=== PATIENT | male | born 1995 | race Caucasian/White ===

== ENCOUNTER 2017-05-26 16:39 | Emergency (ER) | payer BC ==
[~2017-05-26] VITALS: Ht 167.6 cm; Wt 78.0 kg
[2017-05-26 16:42] VITALS: Ht 167.6 cm; Wt 78.0 kg
[2017-05-26] MEDS ORDERED: DICY10CA60 PO (17:42)
[2017-05-26] MEDS ORDERED: ONDA4TAB14 PO (17:42)
--- NOTE | 2017-05-26 17:47 | ERD ---
ER Documentation Chief Complaint Date/Time DATE: 05/26/17 TIME: 17:45 Chief Complaint pt bib family with c/o abd pain and vomiting starting today HPI This is a 21-year-old male with no past medical history who presents with abdominal cramping and vomiting today. He states several hours prior to arrival he noted mild left-sided abdominal cramping that was 3 out of 10 with associated 2 episodes of nonbloody nonbilious emesis. Symptoms are improving currently. No diarrhea. He denies any fevers or chills, no recent sick contacts travel or antibiotics. He denies abdominal surgical history, no scrotal pain or testicular pain. ROS All systems reviewed and are negative except as per history of present illness. Medications Home Meds Active Scripts Dicyclomine Hcl* (Bentyl*) 10 Mg Capsule, 10 MG PO QID Y for abdominal cramping , #20 CAP Prov:GAIL KELLER MD 05/26/17 Ondansetron (Ondansetron Odt) 4 Mg Tab.rapdis, 4 MG PO Q6H Y for NAUSEA AND/OR VOMITING, #30 TAB Prov:GAIL KELLER MD 05/26/17 Allergies Allergies: Coded Allergies: No Known Allergy (Unverified , 05/26/17) FmHx Family History: No diabetes Physical Exam Vitals Vital Signs Date Time Temp Pulse Resp B/P Pulse Ox O2 Delivery O2 Flow Rate FiO2 05/26/17 16:42 98.9 72 16 129/66 99 Physical Exam General: Well developed, well nourished, no acute distress Head: Normocephalic, atraumatic. Eyes: Pupils equally reactive, EOM intact ENT: Moist mucous membranes Neck: Supple, no lymphadenopathy Respiratory: Lungs clear bilaterally, no distress Cardiovascular: RRR, no murmurs, rubs, or gallops Abdominal: Soft, non-tender, non-distended, no peritoneal signs, Negative Robertson sign, no tenderness to McBurney's point, no inguinal hernia : Deferred MSK: No edema, no unilateral swelling, 5/5 strength Neurologic: Alert and oriented, moving all extremities, normal speech, no focal weakness, no cerebellar signs Skin: No rash Psych: Normal mood Procedures/MDM The patient presents with abdominal pain and vomiting. His abdominal pain and vomiting is most consistent with likely viral process. On clinical exam he has a benign abdominal examination without signs or symptoms concerning for acute intra-abdominal process. No evidence of acute testicular process. The patient has normal vital signs without fever. Again, this is most likely viral process. At this time I do not feel the patient would benefit from laboratory testing or diagnostic imaging. The patient is well hydrated. I discussed oral hydration and return precautions including migratory pain to the right lower quadrant or fevers or chills. The patient verbalizes understanding. He is otherwise extremely well-appearing in the emergency department. We discussed follow up with the patient's primary care doctor within 24 to 48 hours as needed. We also discussed return to the emergency room for worsening symptoms or worsening condition. Outpatient referral: None required Discharge Medications: Leonor Blount Diagnosis: Primary Impression: Nausea and vomiting Vomiting type: unspecified Vomiting Intractability: non-intractable Qualified Code: R11.2 - Non-intractable vomiting with nausea, unspecified vomiting type Additional Impression: Abdominal pain Abdominal location: generalized Qualified Code: R10.84 - Generalized abdominal pain Condition: Stable Patient Instructions: Abdominal Pain, Nausea and Vomiting-Adult Referrals: [facility] YOU HAVE RECEIVED A MEDICAL SCREENING EXAM AND THE RESULTS INDICATE THAT YOU DO NOT HAVE A CONDITION THAT REQUIRES URGENT TREATMENT IN THE EMERGENCY DEPARTMENT. FURTHER EVALUATION AND TREATMENT OF YOUR CONDITION CAN WAIT UNTIL YOU ARE SEEN IN YOUR DOCTORS OFFICE WITHIN THE NEXT 1-2 DAYS. IT IS YOUR RESPONSIBILITY TO MAKE AN APPOINTMENT FOR FOLOW-UP CARE. IF YOU HAVE A PRIMARY DOCTOR --you should call your primary doctor and schedule an appointment IF YOU DO NOT HAVE A PRIMARY DOCTOR YOU CAN CALL OUR PHYSICIAN REFERRAL HOTLINE AT IF YOU CAN NOT AFFORD TO SEE A PHYSICIAN YOU CAN CHOSE FROM THE FOLLOWING [facility] [address] [facility] [address] [facility] [facility] [address] [facility] [facility] [address] [facility] [facility] [address] [facility] [facility]. [address] [facility]. [facility] YOU HAVE RECEIVED A MEDICAL SCREENING EXAM AND THE RESULTS INDICATE THAT YOU DO NOT HAVE A CONDITION THAT REQUIRES URGENT TREATMENT IN THE EMERGENCY DEPARTMENT. FURTHER EVALUATION AND TREATMENT OF YOUR CONDITION CAN WAIT UNTIL YOU ARE SEEN IN YOUR DOCTORS OFFICE WITHIN THE NEXT 1-2 DAYS. IT IS YOUR RESPONSIBILITY TO MAKE AN APPOINTMENT FOR FOLOW-UP CARE. IF YOU HAVE A PRIMARY DOCTOR --you should call your primary doctor and schedule and appointment IF YOU DO NOT HAVE A PRIMARY DOCTOR YOU CAN CALL OUR PHYSICIAN REFERRAL HOTLINE AT . IF YOU CAN NOT AFFORD TO SEE A PHYSICIAN YOU CAN CHOSE FROM THE FOLLOWING [facility] INSTITUTIONS[facility] [address] [place] [address] [facility] [address] [place] [address] [facility] [address] [place] [address] Additional Instructions: Call your primary care doctor TOMORROW for an appointment during the next 1 WEEK.Tell the typing secretary that you were referred from this facility.See the doctor sooner or return here if your condition worsens before your appointment time. Please return to the emergency room sooner if you develop any pain to the right lower quadrant of the abdomen any fevers or inability to tolerate oral intake. Otherwise symptoms should last for 3-5 days. GAIL KELLER MD May 26, 2017 17:47
== END 2017-05-26 18:03 | disposition home or self-care (01) ==
LOC: FTE 16:39
DX: R11.2 Nausea with vomiting, unspecified (principal); R10.84 Generalized abdominal pain
CPT/HCPCS: 99284

== ENCOUNTER 2018-02-28 09:54 | Emergency (ER) | END 2018-02-28 11:02 | disposition home or self-care (01) ==

== ENCOUNTER 2018-04-25 11:23 | Emergency (ER) | END 2018-04-25 13:45 | disposition home or self-care (01) ==

== ENCOUNTER 2018-11-05 11:45 | Emergency (ER) | payer SELFPAY ==
[~2018-11-05] VITALS: Ht 167.6 cm; Wt 89.0 kg
[~2018-11-05 11:45] MED LIST: ACET500C5 PO; DICY10CA40 PO; ELEC100080 PO; NAPR-985 PO; ONDA4TAB14 PO; ONDA8TAB14 PO
[2018-11-05 12:18] VITALS: BP 127/72; PULSE 58; RESP 18; Ht 167.6 cm; Wt 89.0 kg
== END 2018-11-05 16:53 | disposition left against medical advice (07) ==
LOC: FTE 11:45
DX: Z53.21 Procedure and treatment not carried out due to patient leaving prior to being seen by health care provider (principal)